=== PATIENT | male | born 1950 | race Caucasian/White ===

== ENCOUNTER 2017-08-17 21:13 | Inpatient (IN) | payer OTHER, MEDICARE, BC ==
[~2017-08-17] VITALS: Ht 182.9 cm; Wt 102.5 kg
[2017-08-17 21:14] VITALS: O2SAT 97
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
[2017-08-17] MEDS ORDERED: IOHEXOL 350 MG/ML 10 ML VIAL (for RAD DIAG) IVCONTRAST ONE (21:42)
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
[2017-08-17 21:56] LABS: AUTOMATED NEUTROPHIL # 4.2 TH/MM3 (1.8-7.7); BASOPHIL # 0.1 TH/MM3 (0-0.2); BASOPHIL % 0.7 % (0.0-2.0); EOSINOPHIL # 0.2 TH/MM3 (0-0.4); HEMATOCRIT 47.5 % (39.0-51.0); HEMO FLAGS DIFF FINAL; LYMPH % 35.6 % (9.0-44.0); LYMPHOCYTE # 2.8 TH/MM3 (1.0-4.8); MEAN CELL VOLUME 94.8 FL (80.0-100.0); MEAN CORPUSCULAR HEMOGLOBIN 32.7 PG (27.0-34.0); MEAN CORPUSCULAR HGB CONC 34.4 % (32.0-36.0); MONO % 8.5 % (0.0-8.0); NEUT % 53.2 % (16.0-70.0); PLATELET COUNT 193 TH/MM3 (150-450); RED BLOOD COUNT 5.01 MIL/MM3 (4.50-5.90); RED CELL DISTRIBUTION WIDTH 14.9 % (11.6-17.2); WHITE BLOOD COUNT 7.8 TH/MM3 (4.0-11.0)
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
[2017-08-17 22:01] VITALS: BP 151/82; PULSE 70; RESP 12; TEMP 98.4; O2SAT 99
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
[2017-08-17 22:22] LABS: APTT (PATIENT) 24.8 SEC (24.3-30.1); INTERNATIONAL NORMALIZED RATIO 0.9 RATIO; PROTHROMBIN TIME - PATIENT 10.2 SEC (9.8-11.6)
[2017-08-17] MEDS ORDERED: CHLORHEXIDINE GLUCONATE 2 % 1 PACK (2 CLOTHS) TOP PRN (23:30)
[2017-08-17] MEDS ORDERED: MAGNESIUM HYDROXIDE SUSP 30 ML CUP PO PRN (23:30)
[2017-08-17] MEDS ORDERED: SENNOSIDES 8.6 MG TAB PO PRN (23:30)
[2017-08-17] MEDS ORDERED: MISCELLANEOUS NURSING INFORMATION XX SCH (23:30)
[2017-08-17] MEDS ORDERED: BISACODYL 10 MG SUPP RECTAL PRN (23:30)
[2017-08-17] MEDS ORDERED: LACTULOSE SYRUP 20 GM/30 ML CUP PO PRN (23:30)
[2017-08-17 23:45] VITALS: BP 152/76; PULSE 72; RESP 14; O2SAT 98
[2017-08-17] MEDS: ONDANSETRON HCL 4 MG/2 ML VIAL IV PUSH PRN (23:56)
[2017-08-17] MEDS: HYDROmorphone HCL PF 1 MG/ML VIAL IV PUSH PRN (23:56)
[2017-08-18] VITALS (13 sets, daily range): BP systolic 148–174; BP diastolic 78–89; PULSE 68–93; RESP 15–24; TEMP 98.4–98.6; O2SAT 93–100
[2017-08-18] MEDS ORDERED: ACETAMINOPHEN 325 MG TAB PO PRN
[2017-08-18] MEDS ORDERED: ONDANSETRON HCL 4 MG/2 ML VIAL IV PUSH PRN
[2017-08-18] MEDS ORDERED: MORPHINE SULFATE 4 MG/ML INJ IV PUSH PRN
[2017-08-18] MEDS ORDERED: NS + KCL 20 MEQ INJ 1,000 ML IV SCH
[2017-08-18] MEDS ORDERED: ACETAMINOPHEN 650 MG SUPP RECTAL PRN
[2017-08-18] MEDS ORDERED: SODIUM CHLORIDE 0.9% FLUSH 10 ML FLUSH IVF PRN
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
--- NOTE | 2017-08-18 01:32 | RADRPT ---
EXAM DATE/TIME: 08/18/2017 00:47 [facility] COMPARISON: CHEST SINGLE AP, August 17, 2017, 21:27. CT THORAX W CONTRAST, August 17, 2017, 21:38. INDICATIONS : Evaluate status of right chest, pneumothorax. MEDICAL HISTORY : None. SURGICAL HISTORY : None. ENCOUNTER: Subsequent ACUITY: 2 days PAIN SCORE: Non-responsive. LOCATION: Right chest FINDINGS: There is no evidence of pneumothorax. Lungs are stable and grossly clear. Cardiac contours are unchan ged. CONCLUSION: No pneumothorax Adan Mathew MD on August 18, 2017 at 1:28 Board Certified Radiologist. This report was verified electronically.
[2017-08-18] MEDS ORDERED: CLON0.2T PO (02:00)
[2017-08-18] MEDS ORDERED: BUPR150XL PO (02:00)
[2017-08-18] MEDS ORDERED: EFFE150C PO (02:00)
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
[2017-08-18] MEDS: CHLORHEXIDINE GLUCONATE 2 % 1 PACK (2 CLOTHS) TOP SCH ×2 (03:18→23:19)
[2017-08-18] MEDS: HYDROmorphone HCL PF 1 MG/ML VIAL IV PUSH PRN ×2 (04:12→09:16)
[2017-08-18 06:17] LABS: AUTOMATED NEUTROPHIL # 7.8 TH/MM3 (1.8-7.7); BASOPHIL % 0.3 % (0.0-2.0); EOSINOPHIL % 0.3 % (0.0-4.0); HEMATOCRIT 43.2 % (39.0-51.0); HEMO FLAGS DIFF FINAL; LYMPH % 12.1 % (9.0-44.0); LYMPHOCYTE # 1.2 TH/MM3 (1.0-4.8); MEAN CORPUSCULAR HEMOGLOBIN 33.2 PG (27.0-34.0); MEAN CORPUSCULAR HGB CONC 35.3 % (32.0-36.0); MONO % 10.7 % (0.0-8.0); NEUT % 76.6 % (16.0-70.0); PLATELET COUNT 178 TH/MM3 (150-450); RED BLOOD COUNT 4.59 MIL/MM3 (4.50-5.90); RED CELL DISTRIBUTION WIDTH 14.9 % (11.6-17.2); WHITE BLOOD COUNT 10.2 TH/MM3 (4.0-11.0)
[2017-08-18 06:43] LABS: ALT (GPT) 26 U/L (12-78); ANION GAP 9 MEQ/L (5-15); AST (GOT) 22 U/L (15-37); BICARBONATE 23.7 MEQ/L (21.0-32.0); BLOOD UREA NITROGEN 11 MG/DL (7-18); CHLORIDE 109 MEQ/L (98-107); GLOMERULAR FILTRATION RATE 99 ML/MIN (>89); POTASSIUM 4.2 MEQ/L (3.5-5.1); SODIUM (NA) 142 MEQ/L (136-145)
[2017-08-18 06:46] LABS: ALKALINE PHOSPHATASE 47 U/L (45-117); TOTAL BILIRUBIN ADULT 0.6 MG/DL (0.2-1.0)
[2017-08-18] MEDS ORDERED: FAMOTIDINE 20 MG/2 ML VIAL IV PUSH SCH (09:00)
[2017-08-18] MEDS: DOCUSATE SODIUM 50 MG/SENNA 8.6 MG TAB PO SCH ×2 (09:00→20:32)
[2017-08-18] MEDS: SODIUM CHLORIDE 0.9% FLUSH 10 ML FLUSH IV FLUSH SCH ×2 (09:15→20:32)
[2017-08-18] MEDS: ONDANSETRON HCL 4 MG/2 ML VIAL IV PUSH PRN (09:22)
[2017-08-18] MEDS: cloNIDine HCL 0.2 MG TAB PO SCH ×2 (10:59→20:32)
[2017-08-18] MEDS: buPROPion HCL 150 MG SUSTAINED RELEASE TAB PO SCH (10:59)
[2017-08-18] MEDS: BACITRACIN TOP OINT 15 GM TUBE TOPICAL SCH ×2 (12:03→20:32)
[2017-08-18] MEDS: VENLAFAXINE HCL XR 75 MG CAP PO SCH (12:04)
[2017-08-18] MEDS: KETOROLAC TROMETHAMINE 30 MG/ML (IVP) VIAL IV PUSH SCH ×2 (12:04→16:58)
[2017-08-18] MEDS: MULTIVITAMIN INJ 10 ML, THIAMINE INJ 100 MG, FOLIC ACID INJ 1 MG in SODIUM CHLORID 0.9%... IV SCH (13:00)
[2017-08-18] MEDS: oxyCODONE/ACETAMINOPHEN 5 MG/325 MG TAB PO PRN ×2 (16:59→22:02)
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
[2017-08-18] MEDS: MORPHINE SULFATE 4 MG/ML INJ IV PUSH PRN (20:31)
[2017-08-18] MEDS: FAMOTIDINE 20 MG TAB PO SCH (20:32)
[2017-08-19] VITALS: BP 149/85; PULSE 72; RESP 14; TEMP 97.7; O2SAT 95
[2017-08-19] MEDS: KETOROLAC TROMETHAMINE 30 MG/ML (IVP) VIAL IV PUSH SCH ×3 (01:17→14:29)
[2017-08-19] MEDS: MORPHINE SULFATE 4 MG/ML INJ IV PUSH PRN (01:18)
[2017-08-19 04:00] VITALS: BP 146/91; PULSE 78; RESP 16; TEMP 97.5; O2SAT 95
[2017-08-19] MEDS: oxyCODONE/ACETAMINOPHEN 5 MG/325 MG TAB PO PRN ×3 (04:40→14:28)
[2017-08-19 05:07] LABS: AUTOMATED NEUTROPHIL # 5.5 TH/MM3 (1.8-7.7); BASOPHIL % 0.5 % (0.0-2.0); EOSINOPHIL # 0.2 TH/MM3 (0-0.4); EOSINOPHIL % 2.5 % (0.0-4.0); HEMO FLAGS DIFF FINAL; LYMPH % 20.3 % (9.0-44.0); LYMPHOCYTE # 1.7 TH/MM3 (1.0-4.8); MEAN CELL VOLUME 95.2 FL (80.0-100.0); MEAN CORPUSCULAR HEMOGLOBIN 32.6 PG (27.0-34.0); MEAN CORPUSCULAR HGB CONC 34.2 % (32.0-36.0); MONO % 10.8 % (0.0-8.0); NEUT % 65.9 % (16.0-70.0); PLATELET COUNT 150 TH/MM3 (150-450); RED BLOOD COUNT 4.31 MIL/MM3 (4.50-5.90); RED CELL DISTRIBUTION WIDTH 15.3 % (11.6-17.2); WHITE BLOOD COUNT 8.3 TH/MM3 (4.0-11.0)
[2017-08-19 05:35] LABS: ANION GAP 8 MEQ/L (5-15); BICARBONATE 26.3 MEQ/L (21.0-32.0); BLOOD UREA NITROGEN 13 MG/DL (7-18); CHLORIDE 105 MEQ/L (98-107); GLOMERULAR FILTRATION RATE 116 ML/MIN (>89); POTASSIUM 3.8 MEQ/L (3.5-5.1); SODIUM (NA) 139 MEQ/L (136-145)
[2017-08-19 05:39] LABS: ALKALINE PHOSPHATASE 41 U/L (45-117); ALT (GPT) 19 U/L (12-78); AST (GOT) 24 U/L (15-37); TOTAL BILIRUBIN ADULT 1.7 MG/DL (0.2-1.0)
[2017-08-19] MEDS ORDERED: MAGN400S PO (06:01)
[2017-08-19] MEDS ORDERED: SENN1TAB PO (06:01)
--- NOTE | 2017-08-19 06:26 | RADRPT ---
EXAM DATE/TIME: 08/19/2017 05:27 [facility] COMPARISON: CT THORAX W CONTRAST, August 17, 2017, 21:38. CHEST SINGLE AP, August 18, 2017, 0:47. INDICATIONS : Short of breath, pain left ribs MEDICAL HISTORY : None. SURGICAL HISTORY : None. ENCOUNTER: Subsequent ACUITY: 2 days PAIN SCORE: 5/10 LOCATION: Bilateral chest FINDINGS: A single view of the chest demonstrates the lungs to be symmetrically aerated without evidence of mas s, infiltrate or effusion. The cardiomediastinal contours are unremarkable. Osseous structures are intact. CONCLUSION: No acute disease. Adan Mathew MD on August 19, 2017 at 6:24 Board Certified Radiologist. This report was verified electronically.
[2017-08-19 08:00] VITALS: BP 165/91; PULSE 61; RESP 18; TEMP 96.3; O2SAT 99
[2017-08-19] MEDS: FAMOTIDINE 20 MG TAB PO SCH (09:52)
[2017-08-19] MEDS: SODIUM CHLORIDE 0.9% FLUSH 10 ML FLUSH IV FLUSH SCH (09:52)
[2017-08-19] MEDS: VENLAFAXINE HCL XR 75 MG CAP PO SCH (09:53)
[2017-08-19] MEDS: buPROPion HCL 150 MG SUSTAINED RELEASE TAB PO SCH (09:53)
[2017-08-19] MEDS: DOCUSATE SODIUM 50 MG/SENNA 8.6 MG TAB PO SCH (09:53)
[2017-08-19] MEDS: cloNIDine HCL 0.2 MG TAB PO SCH (09:53)
[2017-08-19] MEDS: BACITRACIN TOP OINT 15 GM TUBE TOPICAL SCH (09:56)
[2017-08-19] MEDS ORDERED: OXYC1TAB63 PO (11:14)
[2017-08-19] MEDS ORDERED: BACI500O2 TOPICAL (11:14)
[2017-08-19] MEDS ORDERED: WALKER WHEELS/F1 MIS (11:15)
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
[2017-08-19 12:00] VITALS: BP 150/92; PULSE 71; RESP 18; TEMP 97; O2SAT 98
[2017-08-19] MEDS: MULTIVITAMIN INJ 10 ML, THIAMINE INJ 100 MG, FOLIC ACID INJ 1 MG in SODIUM CHLORID 0.9%... IV SCH (14:29)
== END 2017-08-19 16:54 | disposition home or self-care (01) | DRG 201 ==
LOC: NEPI 21:13 → NEDA 23:16 → EDBD 23:16 → N03B 08-18 01:20 → N06A 08-18 18:06
PROVIDERS: ADMIT Surgery Trauma Surgery; ATTEND Surgery Trauma Surgery
PROC: 0HQLXZZ Repair Left Lower Leg Skin, External Approach (ICD-10-PCS; principal; 2017-08-17)
PROC: 0HQ1XZZ Repair Face Skin, External Approach (ICD-10-PCS; 2017-08-17)
DX: S27.0XXA Traumatic pneumothorax, initial encounter (principal); S81.012A Laceration without foreign body, left knee, initial encounter; S01.111A Laceration without foreign body of right eyelid and periocular area, initial encounter; F17.210 Nicotine dependence, cigarettes, uncomplicated; F10.220 Alcohol dependence with intoxication, uncomplicated; R91.1 Solitary pulmonary nodule; Y92.410 Unspecified street and highway as the place of occurrence of the external cause; V43.52XA Car driver injured in collision with other type car in traffic accident, initial encounter; Y90.8 Blood alcohol level of 240 mg/100 ml or more
CPT/HCPCS: 12001; 12011; 70450; 71010; 71260; 72125; 72170; 73560; 74177; 80053; 80307; 82435; 82565; 82947; 84132; 84295; 84520; 85025; 85610; 85730; 86850; 86900; 86901; 87641; 90471; 94150; 96374; J0690; J1170; J1885; J2270; J2405; J3411; J3480; J7040; Q9967